=== PATIENT | male | born 1935 | race Caucasian/White ===

== ENCOUNTER 2016-11-12 08:33 | Emergency (ER) | payer MEDICARE, BC ==
[2016-11-12] MEDS ORDERED: ALBUTEROL SULFATE 2.5 MG/0.5 ML VIAL.NEB IH ONE ×2 (09:01→09:29)
--- OUTSIDE RECORDS SUMMARY | 2016-11-12 09:06 | XMS REPORT | Continuity of Care Document ---
:1935 Author Organization [facility] ([facility]) Address [address] [place] [address] Phone [phone] Care Team Providers Name Role Phone Prince Lira Primary Care Provider [phone] Source Comments This disclosure is being made pursuant to the Care Everywhere program, applicable federal and state laws, and may not contain all informaitonavailable regarding this patient.[facility] ([facility]) Active Allergies and Adverse Reactions No Known Allergies Current Medications Prescription Sig. Disp. Refills Start Date End Date Status simvastatin 80 mg tablet Take 80 mg by mouth Active every evening. atenolol 25 mg tablet Take 25 mg by mouth Active 2 times daily. amLODIPine 2.5 mg tablet Take 2.5 mg by Active mouth daily. oxybutynin 5 mg tablet Take 5 mg by mouth Active 2 times daily. finasteride 5 mg tablet Take 5 mg by mouth Active daily. omeprazole 40 mg extended Take 40 mg by mouth Active release capsule daily. cephalexin 500 mg capsule Take 500 mg by Active mouth as needed. Before Dental appts aspirin 81 mg tablet Take 81 mg by mouth Active daily. Active Problems Not on file Social History Tobacco Use Types Packs/Day Years Used Date Former Smoker Cigarettes Smokeless Tobacco: Never Used Tobacco Cessation:Counseling Given: Yes Comments:Smoked for a couple of months as a teenager Last Filed Vital Signs Vital Sign Reading Time Taken Blood Pressure 137/72 01/12/2013 9:10 AM CDT Pulse 64 01/12/2013 9:10 AM CDT Temperature - - Respiratory Rate - - Height 1.74 m (5' 8.5") 01/12/2013 8:06 AM CDT Weight 90.402 kg (199 lb 4.8 oz) 01/12/2013 8:06 AM CDT Body Mass Index 29.86 01/12/2013 8:06 AM CDT Oxygen Saturation - - Plan of Care Health Maintenance Due Date Last Done Comments Hepatitis B Vaccine (1 of 3 - Primary Series) 1935 Tdap Vaccine 1944 Lipid Disorder Screening 12/29/1951 Td Vaccine 12/29/1951 Colonoscopy 1983 Zoster Vaccine 1993 Pneumococcal Vaccine (1 of 2 - PCV13) 1998 Influenza Vaccine: Seasonal (#1) 04/15/2016 Results from Last 3 Months Not on file
--- NOTE | 2016-11-12 09:07 | ERNOTE ---
Time Seen by Provider: 11/12/16 08:52 Stated Complaint: COUGH/COLD/FELL TWICE YESTERDAY Presenting Symptoms:: cough Source: patient, family Exam Limitations: no limitations Immunizations: IMMUNIZATION HX Immunizations Up to Date Yes History of Influenza Vaccine Yes Hx Pneumococcal Vaccination Yes Allergies/Adverse Reactions: Allergies No Known Allergies Allergy (Verified 11/12/16 09:13) Home Medications: HOME MEDICATIONS Amlodipine Besilate 2.5 mg PO DAILY 08/27/12 [Last Taken Unknown] Aspirin 81 mg PO DAILY 08/27/12 [Last Taken Unknown] Atenolol 25 mg PO BID 08/27/12 [Last Taken Unknown] Finasteride 5 mg PO DAILY 08/27/12 [Last Taken Unknown] Oxybutynin 40 mg PO DAILY 08/27/12 [Last Taken Unknown] Simvastatin 80 mg PO DAILY 08/27/12 [Last Taken Unknown] Albuterol Sulfate [Proair Hfa] 2 puff IH Q4H PRN #1 inhaler 11/12/16 [Last Taken Unknown] Ergocalciferol (Vitamin D2) [Vitamin D2] 50,000 unit PO DAILY 11/12/16 [Last Taken Unknown] Ezetimibe [Zetia] 10 mg PO DAILY 11/12/16 [Last Taken Unknown] Gabapentin 800 mg PO DAILY 11/12/16 [Last Taken Unknown] Levofloxacin [Levaquin] 750 mg PO DAILY #10 tab 11/12/16 [Last Taken Unknown] Levothyroxine Sodium [Tirosint] 75 mcg PO DAILY 11/12/16 [Last Taken Unknown] Omeprazole 40 mg PO DAILY 11/12/16 [Last Taken Unknown] Tramadol HCl [Rybix Odt] 50 mg PO DAILY PRN 11/12/16 [Last Taken Unknown] - History of Present Ilness Narrative: Patient has had URI symptoms for two days, cough, congestions. He gets short of breath at rest and with minimal activity, no prior history of lung disease. He has felt generally weak since getting sick, has felt dizzy and light headed and fell twice, no head injury, no pain from falling. 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 Absent: recent illness ENT: Present: nose congestion, nasal drainage Respiratory: Present: See HPI, shortness of breath Cardiology: Absent: chest pain Gastrointestinal/Abdominal: Absent: nausea, vomiting, abdominal pain Genitourinary: Present: no symptoms reported Musculoskeletal: Absent: muscle pain Skin: Absent: rash - Patient's Past Medical History Patient History - Medical: Hypothyroidism, Other Patient History - Cardiac/Respiratory: Hypertension, Hyperlipidemia, Sleep Apnea Patient History - Cancer: No Hx of Cancer Patient History - Surgical Procedures: Back Surgery, Total Knee Replacement Patient History - Other: None - Social History Living Situations: home Abuse History: No History of abuse Psych History: No pertinent hx Smoking Status: Never smoker Alcohol Use: none Drug Use: none - Immunizations Immunizations Up to Date: Yes Hx Pneumococcal Vaccination: Yes History of Influenza Vaccine: Yes Physical Exam - Physical Exam General Appearance: Present: alert, no apparent distress Eye Exam: Normal inspection: bilateral Ears, Nose, Throat: Present: normal pharynx Respiratory: Present: no respiratory distress, no accessory muscle use, decreased breath sounds, wheezing - clear with deep breath Cardiovascular/Chest: Present: regular rate, rhythm, no murmur Gastrointestinal/Abdominal: Present: nontender, nondistended Extremity Exam: Present: no edema Neurological Exam: Present: alert, oriented, normal mood/affect Skin Exam: Present: normal color, warm/dry ED Progress - Results and Orders Patient's Lab Results:: I have reviewed the patient's lab results. - Vital Signs Patient's Vital Signs:: I have reviewed the patient's vital signs. Vital Signs: Vital Signs 11/12/16 08:38 Temperature 37.4 C Pulse Rate 80 Respiratory 16 Rate Blood Pressure 147/77 O2 Sat by Pulse 96 Oximetry - X-Ray X-Ray #1 X-Ray: chest - atelectasis vs developing pneumonia Interpretation: Reviewed by me - Progress/Reassessment Chief Complaint: Upper Respiratory Symptoms Progress Note-Subjective: 11/12/16 10:55 shortness of breath better after breathing treatment discussed results, CXR shows possible pneumonia, patient has normal WBC, O2s, respiratory rate due to his age pneumonia severity index 92 (class IV), discussed possible admission, patient and family would like to try out patient treatment, discussed coming back for any worsening symptoms Departure - Departure Clinical Impression: Pneumonia Qualifiers: Pneumonia type: due to unspecified organism Laterality: right Lung location: middle lobe of lung Qualified Code(s): J18.1 - Lobar pneumonia, unspecified organism Disposition: Home self-care Condition: Good Instructions: Community-Acquired Pneumonia, Adult, [id number] Additional Instructions: if you get any worse at all, return to the ER use over the counter mucinex call your doctor for a follow up appointment Referrals: Prince Lemus MD [Primary Care Provider] - Prescriptions: Albuterol Sulfate [Proair Hfa] 2 puff IH Q4H PRN #1 inhaler PRN Reason: Shortness Of Breath Levofloxacin [Levaquin] 750 mg PO DAILY #10 tab
[2016-11-12 09:14] LABS: Hematocrit 37.8 % (42.0-52.0); Hemoglobin 12.3 gm/dL (13.5-18.0); Mean Cell Volume 85.9 fl (78-100); Mean Corpuscular Hgb Conc 32.5 g/dl (32-36); Mean Platelet Volume 11.1 fl (6.0-9.5); Platelet Count 43 K/mm3 (150-450); Red Cell Distribution Width 15.6 % (11.5-14.0); White Blood Count 4.9 K/mm3 (4.0-10.5)
[2016-11-12 09:22] LABS: Total Cells Counted 100
[2016-11-12 09:34] LABS: Albumin * 3.1 gm/dl (3.4-5.0); Anion Gap 13.5 mmol/L (6.8-13.8); BUN/Creatinine Ratio 21.7 (9.0-21.6); Ca. Corrected For Albumin 8.8 mg/dL (8.4-10.2); Calcium * 8.4 mg/dL (7.9-10.9); Carbon Dioxide 25.4 mmol/L (24-32.6); Potassium 3.9 mmol/L (3.4-4.6)
[2016-11-12 09:50] LABS: Atypical (Reactive) Lymph 2 % (0-2); Band 3 % (0-2.0); Lymphocyte 14 % (20-51); Monocyte 4 % (0-9); Neutrophil 77 % (42-75); Neutrophil # 3.8 K/mm3 (1.3-6.0)
[2016-11-12 09:51] LABS: Platelet Estimate Decreased (NORMAL); Polychromasia Trace
[2016-11-12 11:20] VITALS: BP 144/98
== END 2016-11-12 11:05 | disposition home or self-care (01) ==
LOC: ER 08:33
DX: J18.1 Lobar pneumonia, unspecified organism (principal)

== ENCOUNTER 2017-01-10 06:51 | Day surgery (SDC) | payer MEDICARE, BC ==
[~2017-01-10 06:51] MED LIST: CIPROFLOXACIN HCL 500 MG TABLET PO PRN
--- OUTSIDE RECORDS SUMMARY | 2017-01-10 06:55 | XMS REPORT | Continuity of Care Document ---
:1935 Author Organization [facility] ([facility]) Address [address] [place] [address] Phone [phone] Care Team Providers Name Role Phone Prince Lira Primary Care Provider [phone] Source Comments This disclosure is being made pursuant to the Care Everywhere program, applicable federal and state laws, and may not contain all informaitonavailable regarding this patient.[facility] ([facility]) Active Allergies and Adverse Reactions [...]
[2017-01-10] MEDS ORDERED: LIDOCAINE HCL 10 APPL CARTRIDGE TP ONE (08:09)
[2017-01-10 08:52] VITALS: BP 163/93
== END 2017-01-10 06:52 | disposition home or self-care (01) ==
LOC: AMB 06:51
PROVIDERS: ATTEND Urology
PROC: 3E1K88X Irrigation of Genitourinary Tract using Irrigating Substance, Via Natural or Artificial Opening Endoscopic, Diagnostic (ICD-10-PCS; 2017-01-10)
PROC: 0TJB8ZZ Inspection of Bladder, Via Natural or Artificial Opening Endoscopic (ICD-10-PCS; principal; 2017-01-10 08:00)
DX: N40.1 Benign prostatic hyperplasia with lower urinary tract symptoms (principal); R39.81 Functional urinary incontinence; N13.8 Other obstructive and reflux uropathy; I10 Essential (primary) hypertension; Z68.31 Body mass index [BMI] 31.0-31.9, adult

== ENCOUNTER 2018-09-10 10:07 | Observation (INO) | payer BC, MEDICARE ==
[2018-09-10] MEDS ORDERED: ACETAMINOPHEN 325 MG TABLET PO ONE (10:29)
--- NOTE | 2018-09-10 10:38 | ERNOTE ---
Medical Problem HPI - General Chief Complaint: General Assessment Time Seen by Provider: 09/10/18 10:15 Source: patient Exam Limitations: no limitations - Immun/Allergies/Home Medications Immunizations: IMMUNIZATION HX Immunizations Up to Date Yes History of Influenza Vaccine Yes Hx Pneumococcal Vaccination Yes Allergies/Adverse Reactions: Allergies No Known Allergies Allergy (Verified 09/10/18 13:11) Home Medications: HOME MEDICATIONS Donepezil HCl [Aricept] 5 mg PO HS 01/08/17 [Last Taken 08/09/18] Simvastatin [Zocor] 80 mg PO HS 01/08/17 [Last Taken 08/09/18] Lactase [Lactaid] 3,000 unit PO DAILY PRN 01/10/17 [Last Taken 08/09/18] Oxybutynin Chloride [Ditropan Xl] 10 mg PO BID 11/07/17 [Last Taken 08/09/18] predniSONE [Deltasone] 60 mg PO DAILY #15 tab 11/08/17 [Last Taken Unknown] potassium chloride ER 20 mEq tablet,extended release 20 meq PO DAILY #30 tab 05/06/18 [Last Taken 08/09/18] furosemide 40 mg tablet 40 mg PO .COMPLEX PRN 05/25/18 [Last Taken Unknown] ipratropium bromide 42 mcg (0.06 %) nasal spray 2 spray GHISLAINE QID 05/25/18 [Last Taken Unknown] mirabegron ER 25 mg tablet,extended release 24 hr 25 mg PO DAILY 06/11/18 [Last Taken 08/09/18] tramadol 50 mg tablet 50 mg PO Q4H PRN #120 tab 06/25/18 [Last Taken 08/09/18] ergocalciferol (vitamin D2) 50,000 unit capsule 50,000 unit PO QWEEK #7 cap 07/22/18 [Last Taken 08/09/18] gabapentin 800 mg tablet 800 mg PO TID #90 tab 08/19/18 [Last Taken Unknown] finasteride 5 mg tablet 5 mg PO DAILY #30 tab 08/26/18 [Last Taken Unknown] levothyroxine 75 mcg tablet 75 mcg PO DAILY #30 tab 08/26/18 [Last Taken Unknown] atenolol 25 mg tablet 25 mg PO DAILY #90 tab 09/01/18 [Last Taken Unknown] atenolol 25 mg tablet 25 mg PO BID #60 tab 09/09/18 [Last Taken Unknown] - History of Present History Narrative: Patient felt well when going to bed last last. When his checked on him this morning he was still sleeping at 09:00. she woke him up and he was too weak to get up. He denies any other symptoms, no chest pain, no shortness of breath, no abdominal pain, no recent illness or medication changes Medical History (Last Reviewed 09/10/18 @ 13:10 by Eleni Perez RN) Nuclear age-related cataract, both eyes (Chronic) CAD (coronary artery disease) (Chronic) Onset Date: Unknown Sciatica (Chronic) Onset Date: Unknown Low back pain (Chronic) Onset Date: Unknown Hypothyroidism (Chronic) Onset Date: Unknown Hypertension (Chronic) Onset Date: Unknown Hyperlipidemia (Chronic) Onset Date: Unknown Gout (Chronic) Onset Date: Unknown GERD (gastroesophageal reflux disease) (Chronic) Onset Date: Unknown Gait abnormality (Chronic) Onset Date: Unknown BPH (benign prostatic hyperplasia) (Chronic) Onset Date: Unknown Refused influenza vaccine per dr marilin jimenez until mid june pneumonia vaccine received Lactose intolerance Onset Date: Unknown Diverticulosis Onset Date: Unknown Glucose intolerance Onset Date: Unknown H. pylori infection Onset Date: Unknown H/O coronary angiogram Onset Date: ~2006 2006 Hernia Onset Date: Unknown Knee pain, bilateral Onset Date: Unknown Surgical History: Surgical History (Last Reviewed 09/10/18 @ 13:11 by Eleni Perez RN) H/O colonoscopy Onset Date: Unknown H/O inguinal hernia repair Onset Date: 08/30/05 History of esophagogastroduodenoscopy (EGD) Onset Date: Unknown History of knee replacement, total Onset Date: Unknown right 1992, left 1993 Previous back surgery Onset Date: ~1988 Status post epidural steroid injection Onset Date: Unknown Family History: Family History (Last Reviewed 09/10/18 @ 13:11 by Eleni Perez RN) Mother , age 86 TIA (transient ischemic attack) Myocardial infarction Father No problems noted. Social History: Preferred Language Sammarinese Do you have any methodist or No cultural preference? Smoking Status Never smoker Abuse History No History of abuse Psych History No pertinent hx Alcohol Use none Drug Use none (Last Updated 08/03/18 @ 20:19 by Gabino Morrison DO) No Social History Section defined Physical Exam - Physical Exam General Appearance: Present: wd/wn, alert, no apparent distress Head Exam: Present: normal inspection Ears, Nose, Throat: Present: normal pharynx Respiratory: Present: no respiratory distress, normal breath sounds, chest n ontender, lungs clear Cardiovascular/Chest: Present: regular rate, rhythm, no murmur Gastrointestinal/Abdominal: Present: normal bowel sounds, nontender, nondistended, soft Extremity Exam: Present: pedal edema - trace Neurological Exam: Present: alert, oriented, normal mood/affect, other - diffuse generalized weakness, no focal deficit, hospitality internship and smile symmetric, no drift. Absent: facial droop Skin Exam: Present: normal color, warm/dry, other - face flushed Progress - Results and Orders Patient's Lab Results:: I have reviewed the patient's lab results. - Vital Signs Patient's Vital Signs:: I have reviewed the patient's vital signs. Vital Signs: Vital Signs 09/10/18 10:18 Temperature 38.3 C H Pulse Rate 103 H Respiratory Rate 27 H Blood Pressure 159/92 H O2 Sat by Pulse Oximetry 94 - X-Ray X-Ray #1 X-Ray: chest - 1. Right lung pneumonia Interpretation: Reviewed by me - Progress/Reassessment Chief Complaint: General Assessment Progress Note-Subjective: 09/10/18 11:44 discussed diagnosis with patient 09/10/18 11:53 updated family 09/10/18 11:[address] Etienne 09/10/18 12:30 discussed with amy Nuno to admit for pneumonia and sepsis (infection and two SIRS criteria: HR and RR) continue rocephin and zithromax PSI score 84, class III, will admit for observation after discussion with pillowcase turner Departure Clinical Impression: Pneumonia Qualifiers: Pneumonia type: due to unspecified organism Laterality: right Lung location: unspecified part of lung Qualified Code(s): J18.9 - Pneumonia, unspecified organism Sepsis Qualifiers: Sepsis type: sepsis due to unspecified organism Qualified Code(s): A41.9 - Sepsis, unspecified organism - Departure Disposition: Still a patient Condition: Stable
[2018-09-10 10:50] LABS: Hematocrit 46.4 % (42.0-52.0); Hemoglobin 15.4 gm/dL (13.5-18.0); Mean Cell Volume 92.2 fl (78-100); Mean Corpuscular Hemoglobin 30.6 pg (27-31); Mean Corpuscular Hgb Conc 33.2 g/dl (32-36); Mean Platelet Volume 12.4 fl (8-11.3); Neutrophil # 7.9 K/mm3 (1.3-6.0); Neutrophil % 86.2 % (42-75.0); Platelet Count 52 K/mm3 (150-450); Red Blood Count 5.03 M/mm3 (4.7-6.0); White Blood Count 9.2 K/mm3 (4.0-10.5)
[2018-09-10 11:05] LABS: Albumin * 3.4 gm/dl (3.4-5.0); Anion Gap 13.9 mmol/L (6.8-13.8); BUN/Creatinine Ratio 17.9 (9.0-21.6); CRP 2.7 mg/dL (0.0-0.9); Ca. Corrected For Albumin 9.4 mg/dL (8.4-10.2); Calcium * 9.2 mg/dL (7.9-10.9); Potassium 4.9 mmol/L (3.4-4.6); Total Protein 7.5 gm/dL (6.2-8.2)
[2018-09-10 11:42] LABS: Urine Bilirubin Negative (NEGATIVE); Urine Blood 25 /ul (NEGATIVE); Urine Ketone Negative (NEGATIVE); Urine Nitrite Negative (NEGATIVE); Urine Protein 30 mg/dL (NEGATIVE); Urine Specific Gravity 1.025 SP.GR. (1.005-1.030); Urine Urobilinogen 4 EU/dl (NORMAL); Urine pH 6.5 pH (5.0-7.0)
[2018-09-10] MEDS ORDERED: DEXTROSE 5 % IN WATER 100 ML BAG IV ONE (11:53)
[2018-09-10 11:54] LABS: Urine Appearance Clear (CLEAR); Urine Bacteria 1+; Urine Color Yellow; Urine Mucus Few - 1+; Urine RBC TRACE /hpf (0-5); Urine WBC TRACE /hpf (0-5)
[2018-09-10] MEDS: NORMAL SALINE 1,000 ML IV PRN ×2 (11:57→18:19)
[2018-09-10] MEDS ORDERED: ACETAMINOPHEN 325 MG TABLET PO PRN (12:43)
[2018-09-10] MEDS ORDERED: AZITHROMYCIN 250 MG TABLET PO STA (12:43)
[2018-09-10] MEDS ORDERED: ALBUTEROL SULFATE 2.5 MG/0.5 ML VIAL.NEB IH PRN (14:13)
--- NOTE | 2018-09-10 16:36 | HP ---
Chief Complaint - Chief Complaint Date of Service: 09/10/18 Time of Service: 16:33 Chief Complaint: acute weakness History of Present Illness: Patient with PMHx of HTN, low back pain, and intracranial lesion woke this morning and was unable to sit up, roll over, or move. His reports he overslept this morning, which is uncharacteristic. He also had broke out in a sweat on wakening this morning. He has a bit of a cough, but nothing si gnificant. He was initially febrile to 38.3 on admission. Denies CP, SOB, abdominal pain, diarrhea, dysuria, skin changes. He does have a traumatic lesion on his tongue and is unsure of its origin. 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 He has regained his strength currently. No recent medication changes. Does not drink alcohol. CXR done in the ED showed right sided pneumonia, and he was admitted for treatment. Medical History (Last Reviewed 09/10/18 @ 13:10 by Eleni Perez RN) Nuclear age-related cataract, both eyes (Chronic) CAD (coronary artery disease) (Chronic) Onset Date: Unknown Sciatica (Chronic) Onset Date: Unknown Low back pain (Chronic) Onset Date: Unknown Hypothyroidism (Chronic) Onset Date: Unknown Hypertension (Chronic) Onset Date: Unknown Hyperlipidemia (Chronic) Onset Date: Unknown Gout (Chronic) Onset Date: Unknown GERD (gastroesophageal reflux disease) (Chronic) Onset Date: Unknown Gait abnormality (Chronic) Onset Date: Unknown BPH (benign prostatic hyperplasia) (Chronic) Onset Date: Unknown Refused influenza vaccine per dr marilin jimenez until mid june pneumonia vaccine received Lactose intolerance Onset Date: Unknown Diverticulosis Onset Date: Unknown Glucose intolerance Onset Date: Unknown H. pylori infection Onset Date: Unknown H/O coronary angiogram Onset Date: ~2006 2006 Hernia Onset Date: Unknown Knee pain, bilateral Onset Date: Unknown Surgical History: Surgical History (Last Reviewed 09/10/18 @ 13:11 by Eleni Perez RN) H/O colonoscopy Onset Date: Unknown H/O inguinal hernia repair Onset Date: 08/30/05 History of esophagogastroduodenoscopy (EGD) Onset Date: Unknown History of knee replacement, total Onset Date: Unknown right 1992, left 1993 Previous back surgery Onset Date: ~1988 Status post epidural steroid injection Onset Date: Unknown Family History: Family History (Last Reviewed 09/10/18 @ 13:11 by Eleni Perez RN) Mother , age 86 TIA (transient ischemic attack) Myocardial infarction Father No problems noted. Social History: Patient Lives/Resources With Spouse Utilized Occupation [employer] Preferred Language [place]i Do you have any congregation or Yes: [employer] cultural preference? Smoking Status Never smoker Have you smoked in the past 12 No months Abuse History No History of abuse Psych History No pertinent hx Alcohol Use none Drug Use none (Last Updated 08/03/18 @ 20:19 by Gabino Morrison DO) No Social History Section defined Review Of Systems (GEN) - Review of Systems Generalized/Overall Review: Present: Fever, Fatigue. Absent: Weight loss Respiratory: Present: Cough - baseline, Other - uses CPAP. Absent: Shortness of Breath, Wheezing Cardiac: Absent: Chest Pain, Edema - has lasix ordered for prn swelling, which only happens in the summer Abdominal: Present: Nausea. Absent: Vomiting Genitourinary: Present: Dribbling - baseline Neurological: Present: Pre-existing Deficit - balance disturbance. Absent: Weakness Immunizations: IMMUNIZATION HX Immunizations Up to Date Yes History of Influenza Vaccine Yes Hx Pneumococcal Vaccination Yes Allergies/Adverse Reactions: Allergies Allergy/AdvReac Type Severity Reaction Status Date / Time No Known Allergies Allergy Verified 09/10/18 13:11 Home Medications: HOME MEDICATIONS Donepezil HCl [Aricept] 5 mg PO HS 01/08/17 [Last Taken 09/09/18] potassium chloride ER 20 mEq tablet,extended release 20 meq PO DAILY #30 tab 05/06/18 [Last Taken 09/09/18] ipratropium bromide 42 mcg (0.06 %) nasal spray 2 spray GHISLAINE QID 05/25/18 [Last Taken 09/09/18] tramadol 50 mg tablet 50 mg PO Q4H PRN #120 tab 06/25/18 [Last Taken 09/09/18] ergocalciferol (vitamin D2) 50,000 unit capsule 50,000 unit PO QWEEK #7 cap 07/22/18 [Last Taken 09/04/18] gabapentin 800 mg tablet 800 mg PO TID #90 tab 08/19/18 [Last Taken 09/09/18] finasteride 5 mg tablet 5 mg PO DAILY #30 tab 08/26/18 [Last Taken 09/09/18] levothyroxine 75 mcg tablet 75 mcg PO DAILY #30 tab 08/26/18 [Last Taken 09/09/18] atenolol 25 mg tablet 25 mg PO BID #60 tab 09/09/18 [Last Taken 09/09/18] lactase 3,000 unit tablet 3,000 unit PO DAILY PRN 09/10/18 [Last Taken 09/09/18] vit C 250 mg-E 200 unit-zinc 40 mg-copper 1 di-ezrdtf-kdndqd capsule 1 tab PO BID 09/10/18 [Last Taken 09/09/18] Exam - Exam Vital Signs: Vital Signs - Last Taken Temp 36.7 C 09/10/18 13:11 Pulse 81 09/10/18 14:47 Resp 18 09/10/18 13:11 BP 125/69 09/10/18 13:11 Pulse Ox 93 09/10/18 13:11 Constitutional: Present: Alert, Oriented x3, Cooperative, Well developed, No distress ENT Exam: Present: other - 0.5 cm laceration to mid tongue Eye Exam: bilateral eye: EOMI Neck: Absent: lymphadenopathy (R), lymphadenopathy (L) Respiratory: Present: lungs clear, normal breath sounds. Absent: crackles, rhonchi Cardiovascular/Chest: Present: regular rate, rhythm, edema - 1+ bilaterally Abdomen: Present: Normal bowel sounds, soft, nontender Neurologic: Present: health care social worker II-XII nml as tested. Absent: motor weakness Appearance: Present: appropriate appearance Eye contact: Present: cooperative, good eye contact Thoughts: Present: normal thought pattern Diagnostic Studies: Abnormal Lab Results 09/10/18 09/10/18 09/10/18 Range/Units 10:48 10:48 10:48 Plt Count 52 L (150-450) K/mm3 MPV 12.4 H (8-11.3) fl Immature Gran % (Auto) 0.50 H (0.001-0.429) % Immature Gran # (Auto) 0.05 H (0.000-0.0310) K/mm3 Neutrophils % 86.2 H (42-75.0) % Lymphocytes % 6.8 L (20-51) % Neutrophils # 7.9 H (1.3-6.0) K/mm3 Lymphocytes # 0.62 L (1.5-3.5) k/mm3 Potassium 4.9 H (3.4-4.6) mmol/L Anion Gap 13.9 H (6.8-13.8) mmol/L Lactic Acid, Venous 2.4 H* (0.4-2.0) mmol/L C-Reactive Prot, Quant 2.7 H (0.0-0.9) mg/dL Urine Protein (NEGATIVE) mg/dL Urine Blood (NEGATIVE) /ul Prot Sulfosalicylic Acd (0) mg/dL Urine Urobilinogen (NORMAL) EU/dl Urine Bacteria (NONE) Urine Mucus (NONE) 09/10/18 Range/Units 11:33 Plt Count (150-450) K/mm3 MPV (8-11.3) fl Immature Gran % (Auto) (0.001-0.429) % Immature Gran # (Auto) (0.000-0.0310) K/mm3 Neutrophils % (42-75.0) % Lymphocytes % (20-51) % Neutrophils # (1.3-6.0) K/mm3 Lymphocytes # (1.5-3.5) k/mm3 Potassium (3.4-4.6) mmol/L Anion Gap (6.8-13.8) mmol/L Lactic Acid, Venous (0.4-2.0) mmol/L C-Reactive Prot, Quant (0.0-0.9) mg/dL Urine Protein 30 H (NEGATIVE) mg/dL Urine Blood 25 H (NEGATIVE) /ul Prot Sulfosalicylic Acd 2+ H (0) mg/dL Urine Urobilinogen 4 H (NORMAL) EU/dl Urine Bacteria 1+ H (NONE) Urine Mucus Few - 1+ H (NONE) Laboratory Results WBC 9.2 K/mm3 (4.0-10.5) 09/10/18 10:48 RBC 5.03 M/mm3 (4.7-6.0) 09/10/18 10:48 Hgb 15.4 gm/dL (13.5-18.0) 09/10/18 10:48 Hct 46.4 % (42.0-52.0) 09/10/18 10:48 MCV 92.2 fl (78-100) 09/10/18 10:48 MCH 30.6 pg (27-31) 09/10/18 10:48 MCHC 33.2 g/dl (32-36) 09/10/18 10:48 RDW 14.0 % (11.5-14.0) 09/10/18 10:48 Plt Count 52 K/mm3 (150-450) L 09/10/18 10:48 MPV 12.4 fl (8-11.3) H 09/10/18 10:48 Immature Gran % (Auto) 0.50 % (0.001-0.429) H 09/10/18 10:48 Immature Gran # (Auto) 0.05 K/mm3 (0.000-0.0310) H 09/10/18 10:48 Neutrophils % 86.2 % (42-75.0) H 09/10/18 10:48 Lymphocytes % 6.8 % (20-51) L 09/10/18 10:48 Monocytes % 6.2 % (0.0-9) 09/10/18 10:48 Eosinophils % 0.2 % (0.0-3.0) 09/10/18 10:48 Basophils % 0.1 % (0.0-1.0) 09/10/18 10:48 Nucleated RBC % 0.0 k/mm3 (0-1) 09/10/18 10:48 Neutrophils # 7.9 K/mm3 (1.3-6.0) H 09/10/18 10:48 Lymphocytes # 0.62 k/mm3 (1.5-3.5) L 09/10/18 10:48 Monocytes # 0.6 k/mm3 (0.0-1.0) 09/10/18 10:48 Eosinophils # 0.0 k/mm3 (0.0-0.7) 09/10/18 10:48 Absolute Basophils 0.0 k/mm3 (0.0-0.1) 09/10/18 10:48 Sodium 142 mmol/L (132-142) 09/10/18 10:48 Plasma Sodium 142 mmol/L (130-142) 09/10/18 10:48 Potassium 4.9 mmol/L (3.4-4.6) H 09/10/18 10:48 Chloride 105 mmol/L (97-106) 09/10/18 10:48 Carbon Dioxide 28.0 mmol/L (24-32.6) 09/10/18 10:48 Anion Gap 13.9 mmol/L (6.8-13.8) H 09/10/18 10:48 BUN 21 mg/dL (6-23) 09/10/18 10:48 Creatinine 1.17 mg/dL (0.4-1.4) 09/10/18 10:48 Est GFR (Non-Af Amer) 63 mL/min (60-130) D 09/10/18 10:48 BUN/Creatinine Ratio 17.9 (9.0-21.6) 09/10/18 10:48 Random Glucose 106 mg/dL (70-110) 09/10/18 10:48 Lactic Acid, Venous 1.7 mmol/L (0.4-2.0) 09/10/18 13:49 Calcium 9.2 mg/dL (7.9-10.9) 09/10/18 10:48 Calcium Adj for Albumin 9.4 mg/dL (8.4-10.2) 09/10/18 10:48 Total Bilirubin 1.0 mg/dL (0.0-1.1) 09/10/18 10:48 AST 32 U/L (0-48) 09/10/18 10:48 ALT 41 U/L (19-67) 09/10/18 10:48 Alkaline Phosphatase 131 U/L (50-170) 09/10/18 10:48 C-Reactive Prot, Quant 2.7 mg/dL (0.0-0.9) H 09/10/18 10:48 Total Protein 7.5 gm/dL (6.2-8.2) 09/10/18 10:48 Albumin 3.4 gm/dl (3.4-5.0) 09/10/18 10:48 Procalcitonin 0.30 ng/mL (0.05-0.50) 09/10/18 10:48 Urine Color Yellow 09/10/18 11:33 Urine Appearance Clear (CLEAR) 09/10/18 11:33 Urine pH 6.5 pH (5.0-7.0) 09/10/18 11:33 Ur Specific [place] 1.025 SP.GR. (1.005-1.030) 09/10/18 11:33 Urine Protein 30 mg/dL (NEGATIVE) H 09/10/18 11:33 Urine Glucose (UA) Negative mg/dL (NEGATIVE) 09/10/18 11:33 Urine Ketones Negative mg/dL (NEGATIVE) 09/10/18 11:33 Urine Blood 25 /ul (NEGATIVE) H 09/10/18 11:33 Urine Nitrate Negative (NEGATIVE) 09/10/18 11:33 Urine Bilirubin Negative mg/dl (NEGATIVE) 09/10/18 11:33 Prot Sulfosalicylic Acd 2+ mg/dL (0) H 09/10/18 11:33 Urine Urobilinogen 4 EU/dl (NORMAL) H 09/10/18 11:33 Ur Leukocyte Esterase Negative /ul (NEGATIVE) 09/10/18 11:33 Urine RBC Trace /hpf (0-5) 09/10/18 11:33 Urine WBC Trace /hpf (0-5) 09/10/18 11:33 Ur Epithelial Cells 0-5 /hpf (0-5) 09/10/18 11:33 Urine Bacteria 1+ (NONE) H 09/10/18 11:33 Urine Mucus Few - 1+ (NONE) H 09/10/18 11:33 Urine Culture Comments No culture indicated 09/10/18 11:33 Influenza Type A Ag Negative (NEGATIVE) 09/10/18 11:25 Influenza Type B Ag Negative (NEGATIVE) 09/10/18 11:25 Assessment/Plan - Assessment/Plan (1) Weakness Assessment: Ddx includes pneumonia, TIA, hypoglycemia, seizure, medication side effect. His CXR is abnormal, with official read reporting right sided pneumonia, however he does not appear to have pneumonia clinically. His heart rate and respiratory rate were initially elevated, but this is no longer the case. He is not requiring oxygen, and WBC is not elevated at 9.2, and procalcitonin not elevated. He did have an elevated lactate, which has resolved. He has evidence of trauma on his tongue, so he may have seized overnight, and woke postictal. Medication side effect less likely since he hasn't had med changes lately, and does not use sedating medications. PT eval pending for tomorrow. If seizure activity witnessed, will obtain EEG. Problem: Acute (2) TIA (transient ischemic attack) Assessment: He had weakness in all extremities on wakening this morning, which has resolved. He reports having a lesion on his brain. If his symptoms recur, will order head CT. Problem: Suspected (3) Abnormal CXR Assessment: Lungs sounds are clear, he does not have CP or increased cough, and is not requiring oxygen. His clinical picture does not match his CXR. Will continue Rocephin while hospitalized, however, as he did have a fever on initial presentation to the ED. Will likely transition to po cefdinir tomorrow. Problem: Acute (4) Seizure Problem: Suspected
[2018-09-10] MEDS ORDERED: traMADol HCL 50 MG TABLET PO PRN (18:49)
[2018-09-10] MEDS ORDERED: LACTASE 3000 UNIT PO PRN (18:49)
[2018-09-10] MEDS ORDERED: ATENOLOL 50 MG TABLET ONE (20:22)
[2018-09-10] MEDS ORDERED: DONEPEZIL HCL 10 MG TABLET ONE (20:23)
[2018-09-10] MEDS: ATENOLOL 25 MG TABLET PO SCH (20:28)
[2018-09-10] MEDS ORDERED: SODIUM CHLORIDE IV PRN (20:30)
[2018-09-10] MEDS ORDERED: DONEPEZIL HCL 5 MG TABLET PO SCH (21:00)
[2018-09-10] MEDS: IPRATROPIUM BROMIDE NS SCH (22:10)
[2018-09-11] MEDS: NORMAL SALINE 1,000 ML IV PRN (00:48)
[2018-09-11] MEDS ORDERED: LEVOTHYROXINE SODIUM 75 MCG TABLET PO SCH (07:00)
[2018-09-11] MEDS: ATENOLOL 25 MG TABLET PO SCH (08:45)
[2018-09-11] MEDS: IPRATROPIUM BROMIDE NS SCH (08:46)
[2018-09-11] MEDS ORDERED: POTASSIUM CHLORIDE 20 MEQ TABLET.SA PO SCH (09:00)
[2018-09-11] MEDS ORDERED: FINASTERIDE 5 MG TABLET PO SCH (09:00)
--- NOTE | 2018-09-11 10:53 | DS ---
(1) Weakness Problem: Acute (2) TIA (transient ischemic attack) Problem: Suspected (3) Abnormal CXR Problem: Acute (4) Seizure Problem: Suspected (5) Thrombocytopenia Problem: Acute Description of Stay: Patient with PMHx of HTN, low back pain, and intracranial lesion woke on the morning of 09/10 and was unable to sit up, roll over, or move. His reports he also overslept that morning, which is uncharacteristic. He also had broke out in a sweat on wakening. He had a bit of a cough, but nothing significant. The day of discharge, he felt like he had some chest congestion that was breaking up. He was initially febrile to 38.3 on admission. Denies CP, SOB, abdominal pain, diarrhea, dysuria, skin changes. He does have a traumatic lesion on his tongue and is unsure of its origin. 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 He had regained his strength at the time of my initial evaluation. No recent medication changes. Does not drink alcohol. CXR done in the ED showed right sided pneumonia, and he was admitted for treatment. However, his WBC was normal, procalcitonin was not elevated, he was not requiring oxygen, no significant cough/CP/SOB, so he did not clinically appear to have pneumonia. He did have a fever initially, however, and with his cough, he was given Rocephin and azithromycin, and will DC with cefdinir. The source of his symptoms was felt to be secondary to possible TIA, seizure, or infection. He did not have recurrence of the weakness during his stay. PT evaluated him, and he was felt to be at his baseline on the day of discharge. Continued PT was recommended, but he does not want it at this time. If he were to change his mind, he will ask his PCP. Would recommend repeat CT scan in the next few weeks to assess the intracranial lesion, and also a repeat CXR to ensure clearing. He does have a history of afib, rate controlled with atenolol. He is not anticoagulated, and briefly discussed risks vs benefits with him and his family, but would recommend revisiting this at follow up. He does admit to having repeated falls, and with his thrombocytopenia, he is at risk for bleed. In an office note from earlier this year, his simvastatin was DC'd as it could cause ITP, but was still on his admission medication list. He and his family feel like he wasn't actually taking it, but this is removed from his medication list. Procedures Performed: none Results and Findings: Lab Pending Results 09/10/18 10:48: WBC 9.2, RBC 5.03, Hgb 15.4, Hct 46.4, MCV 92.2, MCH 30.6, MCHC 33.2, RDW 14.0, Plt Count 52 L, MPV 12.4 H, Immature Gran % (Auto) 0.50 H, Immature Gran # (Auto) 0.05 H, Neutrophils % 86.2 H, Lymphocytes % 6.8 L, Monocytes % 6.2, Eosinophils % 0.2, Basophils % 0.1, Nucleated RBC % 0.0, Neutrophils # 7.9 H, Lymphocytes # 0.62 L, Monocytes # 0.6, Eosinophils # 0.0, Absolute Basophils 0.0 09/10/18 10:48: Sodium 142, Plasma Sodium 142, Potassium 4.9 H, Chloride 105, Carbon Dioxide 28.0, Anion Gap 13.9 H, BUN 21, Creatinine 1.17, Est GFR (Non-Af Amer) 63 D, BUN/Creatinine Ratio 17.9, Random Glucose 106, Calcium 9.2, Calcium Adj for Albumin 9.4, Total Bilirubin 1.0, AST 32, ALT 41, Alkaline Phosphatase 131, C-Reactive Prot, Quant 2.7 H, Total Protein 7.5, Albumin 3.4 09/10/18 10:48: Lactic Acid, Venous 2.4 H* 09/10/18 10:48: Procalcitonin 0.30 09/10/18 11:25: Influenza Type A Ag Negative, Influenza Type B Ag Negative 09/10/18 11:33: Urine Color Yellow, Urine Appearance Clear, Urine pH 6.5, Ur Specific [place] 1.025, Urine Protein 30 H, Urine Glucose (UA) Negative, Urine Ketones Negative, Urine Blood 25 H, Urine Nitrate Negative, Urine Bilirubin Negative, Prot Sulfosalicylic Acd 2+ H, Urine Urobilinogen 4 H, Ur Leukocyte Esterase Negative, Urine RBC Trace, Urine WBC Trace, Ur Epithelial Cells 0-5, Urine Bacteria 1+ H, Urine Mucus Few - 1+ H, Urine Culture Comments No culture indicated 09/10/18 13:49: Lactic Acid, Venous 1.7 Discharge Location: Home Disposition: Home self-care Condition: Good Discharge Activity: Activity as tolerated Discharge Diet: General/regular food Referrals: Gabino Morrison DO [Primary Care Provider] - Additional Patient Instructions (free text): -Please make TCM appointment unless intermediate discharge. Thank you! Mellisa @ [phone]. Prescriptions (Any new or edited meds): Cefdinir 300 mg PO BID #8 capsule Complete Home Medications List: Complete Home Medication List: Donepezil HCl [Aricept] 5 mg PO HS 01/08/17 potassium chloride ER 20 mEq tablet,extended release 20 meq PO DAILY #30 tab 05/06/18 ipratropium bromide 42 mcg (0.06 %) nasal spray 2 spray GHISLAINE QID 05/25/18 tramadol 50 mg tablet 50 mg PO Q4H PRN #120 tab 06/25/18 ergocalciferol (vitamin D2) 50,000 unit capsule 50,000 unit PO QWEEK #7 cap 07/22/18 gabapentin 800 mg tablet 800 mg PO TID #90 tab 08/19/18 finasteride 5 mg tablet 5 mg PO DAILY #30 tab 08/26/18 levothyroxine 75 mcg tablet 75 mcg PO DAILY #30 tab 08/26/18 atenolol 25 mg tablet 25 mg PO BID #60 tab 09/09/18 lactase 3,000 unit tablet 3,000 unit PO DAILY PRN 09/10/18 vit C 250 mg-E 200 unit-zinc 40 mg-copper 1 li-wduyxj-vlmoih capsule 1 tab PO BID 09/10/18 Cefdinir 300 mg PO BID #8 capsule 09/11/18 Amb Orders for Discharge: CT Head W/O * Time Frame: 3 Weeks, Location: Radiology Chest PA & Lateral * Time Frame: 3 Weeks, Location: Radiology
[2018-09-11 12:38] VITALS: BP 158/86
[2018-09-11] MEDS ORDERED: AZITHROMYCIN 250 MG TABLET PO SCH (12:45)
== END 2018-09-11 13:00 | disposition home or self-care (01) ==
LOC: ER 10:07 → MS 10:07
PROVIDERS: ADMIT Family Medicine; ATTEND Family Medicine
CPT/HCPCS: 36415; 51701; 71010; 71045; 80053; 81001; 83605; 84145; 85025; 86140; 87040; 87400; 87449; 93005; 96365; 97161; 99285; G0378; G8978; G8979; G8980